=== PATIENT | female | born 1970 | race Caucasian/White ===

== ENCOUNTER 2020-01-16 07:07 | Outpatient (CLI) | payer OTHER, SELFPAY ==
[2020-01-16 07:37] LABS: Basophils Percent Auto 0.8 % (0.2-1.2); Eosinophils Absolute Auto 0.1 K/mm3 (0-0.3); Eosinophils Percent Auto 2.6 % (0-4.4); Hematocrit 40.1 % (37.0-47.0); Hemoglobin 13.2 g/dL (12.0-15.0); Immature Granulocyte Absolute 0.02 K/mm3 (0.00-0.031); Immature Granulocyte Percent A 0.4 % (0-0.5); Lymphocytes Absolute Auto 1.37 K/mm3 (0.9-3.2); Lymphocytes Percent Auto 25.8 % (18.3-44.2); Mean Corpuscular HGB Conc 32.9 g/dl (32-36); Mean Corpuscular Hemoglobin 29.9 pg (26-34); Mean Corpuscular Volume 90.9 fl (80-100); Monocytes Absolute Auto 0.4 K/mm3 (0.1-0.6); Monocytes Percent Auto 7.7 % (2.6-8.5); Neutrophils Absolute Auto 3.3 K/mm3 (1.3-6.7); Neutrophils Percent Auto 62.7 % (45.5-73.1); Platelet Count Result 271 k/mm3 (150-375); Red Blood Count 4.41 M/mm3 (4.2-5.4); Red Cell Distribution Width 12.1 % (11.5-14.5); White Blood Count 5.3 K/mm3 (4.5-10.0)
[2020-01-16 08:17] LABS: Vitamin D 25 Hydroxy 41.9 ng/mL
[2020-01-16 08:49] LABS: Alanine Aminotransferase 14 U/L (4-35); Albumin Level 4.2 g/dL (3.5-5.1); Alkaline Phosphatase 77 U/L (38-126); Aspartate Amino Transferase 25 U/L (14-36); Blood Urea Nitrogen 20 mg/dL (7-17); Carbon Dioxide 31 mmol/L (22-30); Chloride 103 mmol/L (98-107); Cholesterol 181 mg/dL (0-200); Estimated Glomerular Filt Rate > 60; Glucose 93 mg/dL (65-105); HDL Direct 53 mg/dL; Potassium 3.9 mmol/L (3.4-5.0); Sodium 138 mmol/L (137-145); Triglycerides 69 mg/dL (<150)
[2020-01-16 09:00] LABS: LDL Cholesterol Direct 97 mg/dL
[2020-01-16 11:04] LABS: Folic Acid > 20.0 ng/mL (2.76->20)
[2020-01-16 11:35] LABS: Iron 109 ug/dL (37-170)
[2020-01-16 11:48] LABS: Percent Iron Saturation 34 % (20-50)
[2020-01-19 04:44] LABS: FSH 4.6 mIU/mL (***)
== END 2020-01-16 07:08 | disposition home or self-care (01) ==
PROVIDERS: PCP Internal Medicine; Visit Provider Obstetrics & Gynecology
DX: Z01.419 Encounter for gynecological examination (general) (routine) without abnormal findings (principal); N93.9 Abnormal uterine and vaginal bleeding, unspecified
CPT/HCPCS: 36415; 80053; 80061; 82306; 82607; 82728; 82746; 83001; 83036; 83540; 83550; 84443; 85025

== ENCOUNTER 2020-01-20 13:40 | Outpatient (CLI) | payer OTHER, SELFPAY ==
[2020-01-20 16:01] LABS: Lactate Dehydrogenase 429 U/L (313-618)
[2020-01-20 16:32] LABS: Carcinoembryonic Antigen 0.7 ng/mL (0.0-3.0)
[2020-01-23 03:22] LABS: CA-125 63 U/mL (<35)
[2020-01-23 12:36] LABS: Alpha Fetoprotein Tumor Marker 2.9 ng/mL (<6.1)
[2020-01-24 05:34] LABS: CA 19-9 44 U/mL (<34); HCG Tumor Marker <2 mIU/mL (***)
[2020-01-26 09:42] LABS: Reference Lab Test Name Inhibin A
== END 2020-01-20 13:41 | disposition home or self-care (01) ==
PROVIDERS: PCP Internal Medicine; Visit Provider Obstetrics & Gynecology
DX: N83.292 Other ovarian cyst, left side (principal)
CPT/HCPCS: 36415; 82105; 82378; 82397; 83615; 84702; 86301; 86304; 86336

== ENCOUNTER → 2020-11-13 00:57 | Outpatient (CLI) | payer OTHER, SELFPAY ==
[2020-11-13 19:48] LABS: SARS-CoV-2 RNA PCR Negative
== END ==
PROVIDERS: PCP Nurse Practitioner Family; Visit Provider Orthopaedic Surgery
DX: Z01.812 Encounter for preprocedural laboratory examination (principal); Z20.822 Contact with and (suspected) exposure to COVID-19
CPT/HCPCS: C9803; U0003; U0005

== ENCOUNTER 2020-11-17 00:47 | Day surgery (SDC) | payer OTHER, SELFPAY ==
[2020-11-10 14:59] VITALS: BMI 32.3
--- NOTE | 2020-11-16 12:20 | WPDANESEPPF ---
Anes - Initial Pre Proc Eval Procedure: Operation Date: 11/17/20 07:30 Proposed Procedures p Left Anterior Cruciate Ligament Reconstruction, Possible Medial Meniscus Repair - Miguel A Cardenas MD Date/Time: 11/16/20 12:20 Surgeon: Miguel A Cardenas MD Pre Op Diagnosis: Left ACL Tear, Left Medial Meniscus Tear Patient Data Age: 50 Gender: F Height: 1.52 m Weight: 75 kg Allergies Allergy/AdvReac Type Severity Reaction Status Date / Time latex Allergy Severe Itching Verified 11/17/20 06:23 Sulfa (Sulfonamide Allergy Unknown Unknown Verified 11/17/20 06:23 Antibiotics) BANDAIDS Allergy Severe Rash Uncoded 11/17/20 06:23 Home Medications Medication Instructions Recorded Confirmed Type estradiol 1 mg tablet 1 mg PO DAILY 09/16/20 11/17/20 History ibuprofen 200 mg tablet 400 mg PO Q6H PRN tablet 09/16/20 11/17/20 History multivitamin 1 tablet PO DAILY 09/16/20 11/17/20 History chlorhexidine gluconate 4 % 1 applic TOPICAL ONCE #237 ml 09/28/20 11/10/20 Rx topical liquid Patient hx anesthesia problems: none Family hx anesthesia problems: none PMFSH Past Medical History Medical History (Updated 10/26/20 @ 16:04 by Miguel A Cardenas MD) Left ACL tear Left knee pain Medial meniscus tear Surgical History Surgical History H/O total hysterectomy History of shoulder surgery Social History Social History Smoking status: Never smoker Alcohol intake: current Substance use: never Living arrangements: with family Gender identity (if verbalized by the patient): Female Spiritual care concerns: No Anes - Eval Final PreProcedure Day of Procedure 11/16/20 12:20 Patient weight: obese Heart: regular rate and rhythm Lungs: clear to auscultation and normal air movement Airway: Mallampati scale class II Neurological: alert and oriented Last oral intake: >/= 8 hours ASA classification: II Emergent: no Anesthetic plan: proceed Anesthesia type and monitoring: general LMA and standard monitoring Informed Consent: The patient's anesthetic plan and its attendant risks and benefits were discussed with the patient/family/POA. Questions were solicited and answers provided to the satisfaction of the patient/family/POA.
--- NOTE | 2020-11-16 12:21 | WPDANESPNB ---
Anes - Peripheral Nerve Block Date/Time: 11/16/20 12:21 I have discussed with the patient/family/POA the placement of a peripheral nerve block for post-operative pain management, including associated risks, benefits, complications, and side effects. Alternative methods of post-operative analgesia were detailed. Questions were solicited and answers provided to the satisfaction of the patient/family/POA. Time-Out: A pre-procedural Time-Out was completed immediately before starting the procedure and confirmed: Patient Identification, Site, Procedure, Patient Position and the Availability of Requisite Equipment. Clinical Indications: Acute post-operative pain management requested by the operative surgeon. Nerve Block Insertion Note Anes-nerve block: femoral left Patient position: supine Skin prep: chlorhexidine Needle: 22 gauge, stimulating, insulated echogenic needle. Needle length: 80 mm Technique: nerve stimulation lost at (mA) (0.3) and ultrasound Injectate: bupivacaine 0.5% with epi 5 mcg/ml (30cc - no epi) Observations: tolerated well Complications: none Procedure start time:: 1306 Procedure end time:: 130
[2020-11-17] VITALS (12 sets, daily range): BP systolic 90–134; BP diastolic 44–78; PULSE 90–99; RESP 12–16; TEMP 36.2; O2SAT 94–100
[2020-11-17] MEDS: CELECOXIB 200 MG CAPSULE PO (06:32)
[2020-11-17] MEDS: ACETAMINOPHEN 500 MG TABLET 1000 MG PO (06:32)
[2020-11-17] MEDS: LACTATED RINGERS 1,000 ML 30 ML IV CONT ×2 (06:41→11:15)
--- NOTE | 2020-11-17 08:05 | WPDHPUPDATE1 ---
History and Physical Update Update Date/Time: 11/17/20 08:05 History and Physical has been reviewed, including an updated exam of the patient. There are NO changes in the patient's condition. Risks, benefits, and alternatives have been discussed and questions answered. Patient agrees to proceed with procedure.
[2020-11-17] MEDS: ceFAZolin 2 GM/D5W 50 ML 2 GM/50 ML BAG IVPB (08:10)
[2020-11-17] MEDS: BUPIVACAINE HCL 0.5% PF 30 ML VIAL INFILTRATE (09:51)
--- NOTE | 2020-11-17 11:26 | P.OP_ITS ---
Procedure Note - Detailed Date of procedure: 11/17/20 Pre-op diagnosis: Left ACL Tear, Left Medial Meniscus Tear Post-op diagnosis: same Procedure performed: LEFT KNEE SCOPE WITH ACL RECONSTRUCTION, MEDIAL MENISCUS REPAIR AND MAJOR SYNOVECTOMY WITH CHONDROPLASTY AND MINOR SYNOVECTOMY Description of procedure: PATIENT WAS TAKEN TO THE OR. GENERAL ANESTHESIA WAS INDUCED. THE LEFT KNEE WAS TAKEN THROUGH A RANGE OF MOTION AND A PIVOT SHIFT TE ST WAS PREFORMED AND THIS WAS POSITIVE. A LACHMANS TEST AND ANTERIOR DRAWER TESTS WERE ALSO PREFORMED AND BOTH SHOWED LAXITY OF THE ACL. THE LEFT LEG WAS PREPPED AND DRAPED STERILE. TROCARS WERE PLACED IN THE USUAL FASHION. CAMERA WAS INTRODUCED. THERE WAS MODERATE CHONDROMALACIA TO THE PATELLA FEMORAL JOINT. MOST OF THE LESION WAS ON THE PATELLAR SURFACE THERE WAS A LOT OF SYNOVITIS IN THIS COMPARTMENT WELL. THE MEDIAL COMPARTMENT SHOWED MILD CHONDROMALACIA TO THE MED FEMORAL CONDYLE. THER WAS A LARGE BUCKET HANDLE TEAR TO THE MEDIAL MENISCUS. IT WAS EASILY REDUCIBLE WITH A PROBE. THE CAPSULE BEHIND THE TEAR WAS DEBRIDED TO BLEEDING TISSUE. TWO ARTHREX MENISCAL REPAIR SUTURES WERE USED TO REPAIR THE MENISCUS TO THE CAPSULE. THE REPAIR WAS EXCELLENT. NEXT THE ACL WAS IDENTIFIED AND FOUND TO BE COMPLETELY TORN. THE LATERAL MENISCUS WAS NOT TORN. THE LATERAL COMPARTMENT HAD NO CHONDROMALACIA. THE ACL REMNANTS WERE THEN THEN DEBRIDED UNTIL THE PCL WAS IDENTIFIED AND THE SUPERIOR LATERAL NOTCH WAS IDENTIFIED. A NOTCH PLASTY WAS PREFORMED UNTIL THE OVER THE TOP POSITION WAS SEEN. A MEDIAL INCISION WAS MADE MEDIAL TO THE TIBIAL TUBERCLE AND DISSECTION CONTINUED DOWN TO BONE. A TIBIAL ACL GUIDE WAS PLACE UP AGAINST THE PCL AND WAS SET AT 55 DEG POSITION. A GUIDE PIN WAS DRILLED THROUGH THE GUIDE EXITING JUST ANTERIOR TO THE PCL STUMP. A 10 MM TIBIAL TUNNEL WAS DRILLED. A #7 BACK WALL GUIDE WAS PLACED OVER THE GUIDE PIN AT THE 2 O'CLOCK POSITION ON THE FEMUR. A 10 MM FEMORAL TUNNEL WAS DRILLED TO 25 MM. AN ALLOGRAFT ATTACHED TO A TIGHT ROPE SYSTEM. THE ALLOGRAFT WAS PASSED THROUGH THE TIBIAL AND FEMORAL TUNNELS. THE TIGHT ROPE WAS THEN TIGHTENED AND THE ENDO BUTTON WAS SECURED OVER THE SUPERIOR LATERAL FEMORAL CORTEX. WITH THE KNEE AT 30 DEG OF FLEXION AND TENSION ON THE TIBIAL SIDE OF THE ALLOGRAFT, A 20 MM BY 8 MM TISSUE INTERFERENCE SCREW WAS PLACED IN THE TIBIAL TUNNEL OVER A GUIDE WIRE. THE SCREW HAD AN EXCELLENT BITE. THE KNEE WAS TAKEN THROUGH A RANGE OF MOTION AND THE ACL WAS VERY STABLE. SYNOVECTOMY WAS PREFORMED IN THE PATELLO FEMORAL JOINT AND IN THE MEDIAL COMPARTMENT. THEN THE PATELLA AND TROCHLEA UNDERWENT CHONDROPLASTY. THE SURFACE WAS SMOOTH AND THE PATELLA TRACKED WITHOUT TILT. THE INSTRUMENTS WERE REMOVED AFTER THOROUGH IRRIGATION OF THE KNEE JOINT. THE WOUNDS WERE WASHED. THE TROCAR WOUNDS WERE APPROXIMATED WITH 4-0 NYLON. THE TIBIA WOUND WAS APPROXIMATED WITH 0 VICRYL, 2-0 VICRYL AND 3-0 QUILL SUTURE. THE WOUNDS WERE WASHED. DERMABOND AND STERI STRIPS THEN A STERILE DRESSING WAS APPLIED. A BRACE WAS PLACED. THE PATIENT WAS EXTUBATED. Anesthesia: GLMA Surgeon: Miguel A Cardenas MD Estimated blood loss (mL): 25 Complications: No immediate complications Condition: stable Disposition: PACU
[2020-11-17] MEDS: fentaNYL CITRATE INJ (*CRX) 100 MCG/2 ML VIAL 25 MCG IV PUSH ×4 (11:44→12:10)
[2020-11-17] MEDS: ONDANSETRON INJ 4 MG/2 ML VIAL IV PUSH (12:38)
--- NOTE | 2020-11-17 13:02 | SUR.PHASEII ---
1250- Call to Dr. Phelps patient complaining of left knee pain and refusing pain medications offered. at bedside and voicing concern for increased left knee pain post operatively. Gm requesting Dr. Phelps come round on patient and speak with him and Venita in regards to pain control and a block. 1300- Dr. Phelps to room and spoke with Gm and Venita and to give patient block to left knee for pain control.
--- NOTE | 2020-11-17 13:48 | SUR.PHASEII ---
1348- PT in to work with patient at this time.
--- NOTE | 2020-11-17 14:09 | PCPTNOTE ---
Pt participated in crutch training this afternoon with present. Therapist adjusts and educates patient on appropriate crutch fitting. Pt educated on and practices NWBing L LE, transferring sit<>stand with crutches, proper crutch placement on floor, step to technique, and overall safety. Pt able to ambulate ~ 30 feet with MIN A for LOB x 2 and able to maintain NWBing status. Pt educated on proper sequencing with crutches on stairs and all questions answered. Iris Pop DPT
== END 2020-11-17 14:31 | disposition home or self-care (01) ==
PROVIDERS: PCP Nurse Practitioner Family; Visit Provider Orthopaedic Surgery
PROC: (CPT 29888; principal; 2020-11-17 07:30)
DX: S83.512A Sprain of anterior cruciate ligament of left knee, initial encounter (principal); S83.212A Bucket-handle tear of medial meniscus, current injury, left knee, initial encounter; X50.0XXA Overexertion from strenuous movement or load, initial encounter; M94.262 Chondromalacia, left knee; M65.862 Other synovitis and tenosynovitis, left lower leg; G89.18 Other acute postprocedural pain; E66.9 Obesity, unspecified; Z68.31 Body mass index [BMI] 31.0-31.9, adult
CPT/HCPCS: 29881; 29888; 64447; A9270; C9803; J0690; J1100; J1170; J2250; J2370; J2405; J2704; J3010; J7120; L1830; U0003; U0005